=== PATIENT | male | born 1975 | race Caucasian/White ===

== ENCOUNTER 2016-07-01 20:31 | Emergency (ER) | payer OTHER ==
[~2016-07-01 20:31] MED LIST: ACETAMINOPHEN325 MG PO; MOTRIN600 M1 PO; MULTI-VITAMIN W1 TA1 PO; NO MEDICATIONS; NON-ASPIRIN PA325 MG; ONE TABLET DAIL1 TA2 PO; TYLENOL #3 PO
== END 2016-07-01 21:41 | disposition home or self-care (01) ==
LOC: SED 20:31
DX: L25.5 Unspecified contact dermatitis due to plants, except food (principal); F17.210 Nicotine dependence, cigarettes, uncomplicated
CPT/HCPCS: 99282